=== PATIENT | male | born 1965 | race Caucasian/White ===

== ENCOUNTER 2018-08-30 10:29 | Outpatient (CLI) | payer OTHER ==
--- NOTE | 2018-08-30 13:39 | CT ---
CT RIGHT SHOULDER WITHOUT CONTRAST: DATE: 08/30/2018. PROVIDED CLINICAL HISTORY: Right shoulder dislocation. FINDINGS: There is no evidence for a fracture or other acute osseous abnormality. Glenohumeral degenerative ch anges are seen with osteophyte formation arising from the humeral head inferiorly. Subcortical cyst- like change is noted involving the inferior aspects of the glenoid. Alignment appears anatomic. Mil d acromioclavicular joint osteoarthrosis. The regional soft tissues demonstrate an unremarkable unen hanced CT appearance. Rotator cuff muscular volume appears preserved. The visualized right lung fie ld appears clear. IMPRESSION: Glenohumeral and acromioclavicular degenerative change. POS: C
== END 2018-08-30 10:30 | disposition home or self-care (01) ==
LOC: BICCT 10:29
PROVIDERS: ATTEND Orthopaedic Surgery Sports Medicine
DX: M24.411 Recurrent dislocation, right shoulder (principal); M19.011 Primary osteoarthritis, right shoulder

== ENCOUNTER 2018-09-18 00:25 | Outpatient (CLI) | payer OTHER ==
[2018-09-18 10:18] LABS: Hemoglobin 16.1 g/dL (14.0-18.0); Mean Corpuscular HGB CONC 32.6 g/dL (32.0-36.0); Mean Corpuscular Hemoglobin 28.3 pg (27.0-31.0); Mean Corpuscular Volume 86.7 fL (78.0-98.0); Mean Platelet Volume 9.2 fL (7.4-10.4); Platelet Count 217 thou/uL (130-400); RBC Distribution Width 12.7 % (11.5-14.5); Red Blood Cell (RBC) Count 5.71 mill/uL (4.70-6.10); White Blood Cell (WBC) Count 7.8 thou/uL (4.8-10.8)
[2018-09-18 10:26] LABS: INR-International Normal Ratio 1.1; PTT 29.3 SEC (22.9-36.1); Prothrombin Time 14.1 SEC (12.0-14.7)
[2018-09-18 10:47] LABS: Anion Gap 16 mmol/L (10-20); BUN (Urea Nitrogen) 13 mg/dL (8.4-25.7); Calc. Creatinine Clearance 0 mL/min (70-130); Calcium 9.7 mg/dL (7.8-10.44); Carbon Dioxide 24 mmol/L (22-29); Chloride 101 mmol/L (98-107); Estimated GFR-MDRD 81; Glucose 193 mg/dL (70-105); Potassium 4.5 mmol/L (3.5-5.1); Sodium 136 mmol/L (136-145)
== END 2018-09-18 00:26 | disposition home or self-care (01) ==
LOC: LABBT 00:25
PROVIDERS: ATTEND Orthopaedic Surgery Sports Medicine
DX: Z01.818 Encounter for other preprocedural examination (principal); M19.111 Post-traumatic osteoarthritis, right shoulder
CPT/HCPCS: 80048; 85027; 85610; 85730; 93005; 93010

== ENCOUNTER 2018-09-19 09:00 | Inpatient (IN) | payer OTHER ==
[2018-09-18 09:36] VITALS: BMI 39.3
[2018-09-21] MEDS ORDERED: Fentanyl 100 MCG/2 ML VIAL ONE ×2 (10:12→10:49)
[2018-09-21] MEDS ORDERED: EPINEPHrine 1 MG/ML AMP ONE (10:49)
[2018-09-21] MEDS ORDERED: Midazolam HCl 2 mg/2 ml Vial ONE (10:49)
[2018-09-21] MEDS ORDERED: Bupivacaine/Epinephrine 0.25% 30 ML VIAL ONE (11:37)
--- NOTE | 2018-09-21 14:24 | OP ---
DATE OF PROCEDURE: 09/21/2018 PREOPERATIVE DIAGNOSIS: Right shoulder degenerative joint disease. POSTOPERATIVE DIAGNOSIS: Right shoulder degenerative joint disease. PROCEDURE PERFORMED: Right shoulder edouard-arthroplasty using an Arthrosurface 52 x 48 mm humeral head. ANESTHESIA: General with interscalene block. VEGETABLE PACKER: Rolando Bhatti PA-C. BLOOD LOSS: 100 mL. DRAINS: None. COMPLICATIONS: None. DESCRIPTION OF PROCEDURE: Following induction of general anesthesia, the patient was placed in the beach-chair position on the operating room table. His right shoulder was prepped and draped in a sterile fashion for surgery. A 10-cm incision was made in the deltopectoral interval. Subcutaneous tissue was divided by careful blunt dissection. The deltopectoral interval was opened bluntly. Hemostasis was maintained. A [place] retractor was used for providing soft tissue retraction. The conjoint tendon was divided along its lateral border and retracted medially to expose the subscapularis. Subscapularis was noted to attach into the humerus. It was divided sharply using a needle-tip Bovie. Three #5 Ethibond sutures were placed in the retracted end of the subscap for lateral repair. A 1 to 1.5 cm cuff of tissue was left attached to the humerus for lateral repair. After releasing the subscap and the joint capsule, the shoulder was dislocated. There was noted to be grade 4 degenerative changes of the central and superior aspect of the humeral head. The glenoid surface was noted to have no degeneration or deterioration. The humeral head was exposed and sized to be a 52 x 48 mm humeral head. A guidepin was placed in through the drill guide. It was overreamed using a reamer, so that an appropriate central fixation screw could be inserted. Central fixation screw was inserted with excellent fit and fixation. The surrounding osteophytes were removed and the humeral head was prepared for inserting the permanent component. The wounds were copiously irrigated. Glenoid surface was again carefully inspected, ensuring that no degenerative changes were encountered. A permanent humeral head Arthrosurface implant was placed by press-fit technique with excellent fit and fixation. The wounds were then copiously irrigated. The shoulder had an excellent range of motion, fit, and stability. The subscapularis muscle was then repaired using the three #5 Ethibond sutures placed in horizontal mattress type fashion through the cuff of tissue remaining on the humerus. Excellent fixation and stabilization were obtained. The subcutaneous tissue was closed using 2-0 Vicryl, and akilah were placed in the skin. A large compressive sterile dressing was applied. The patient tolerated the procedure well, was taken to the recovery room in stable condition. Job ID: [id number]
[2018-09-21] MEDS ORDERED: Morphine 2 MG/ML SYRINGE SLOW IVP PRN (15:21)
[2018-09-21] MEDS ORDERED: Morphine 4 MG/ML VIAL SLOW IVP PRN (15:22)
[2018-09-21] MEDS ORDERED: HYDROcodone/Acetaminophen 7.5/325 mg Tablet PO PRN ×2 (15:23)
[2018-09-21] MEDS ORDERED: Acetaminophen 500 MG TAB PO PRN (15:24)
[2018-09-21] MEDS: Dextrose 5 %-0.45 % NaCl 1,000 ML IV SCH ×2 (15:28→15:44)
[2018-09-21] MEDS ORDERED: Acetaminophen 325 MG TAB PO PRN (15:39)
[2018-09-21] MEDS ORDERED: diphenhydrAMINE 50 MG CAP PO PRN (15:39)
[2018-09-21] MEDS ORDERED: Ondansetron ODT 4 MG TAB PO PRN (15:39)
[2018-09-21] MEDS ORDERED: HYDROcodone/Acetaminophen 10/325 mg Tablet PO PRN ×2 (15:39)
[2018-09-21] MEDS ORDERED: traMADol HCl 50 MG TAB PO PRN ×2 (15:39)
[2018-09-21] MEDS: Ketorolac Tromethamine 30 MG/ML VIAL IVP SCH ×2 (16:45→17:47)
[2018-09-21] MEDS: CEFAZOLIN 2 GM in Premix Bag 1 BAG IVPB SCH ×2 (17:48→17:57)
[2018-09-22] MEDS: Ketorolac Tromethamine 30 MG/ML VIAL IVP SCH ×6 (00:25→11:20)
[2018-09-22] MEDS: CEFAZOLIN 2 GM in Premix Bag 1 BAG IVPB SCH ×3 (03:01→11:01)
[2018-09-22] MEDS: Dextrose 5 %-0.45 % NaCl 1,000 ML IV SCH ×2 (06:00→07:38)
[2018-09-22 11:41] VITALS: BP 135/84; TEMP 98.2
== END 2018-09-22 13:45 | disposition home or self-care (01) | DRG 483 ==
LOC: SURG A 09-21 09:58
PROVIDERS: ADMIT Orthopaedic Surgery Sports Medicine; ATTEND Orthopaedic Surgery Sports Medicine
PROC: 0RRJ0J6 Replacement of Right Shoulder Joint with Synthetic Substitute, Humeral Surface, Open Approach (ICD-10-PCS; principal; 2018-09-21)
DX: M19.011 Primary osteoarthritis, right shoulder (principal); I10 Essential (primary) hypertension; G47.00 Insomnia, unspecified; F17.220 Nicotine dependence, chewing tobacco, uncomplicated; Z98.890 Other specified postprocedural states
CPT/HCPCS: J0171; J0690; J1885; J2250; J3010

== ENCOUNTER 2023-04-04 10:41 | Emergency (ER) | payer OTHER ==
[2023-04-04 11:39] LABS: #Basophils 0.1 thou/uL (0.0-0.2); #Eosinphils 0.2 thou/uL (0.0-0.7); #Neutrophils 13.8 thou/uL (1.40-6.50); %Basophils 0.3 % (0.0-1.0); %Lymphocytes 9.3 % (21.0-51.0); %Monocytes 6.2 % (0.0-10.0); %Neutrophils 82.5 % (42.0-75.0); Hematocrit 45.5 % (42.0-52.0); Hemoglobin 15.3 g/dL (14.0-18.0); Mean Corpuscular HGB CONC 33.6 g/dL (32.0-36.0); Mean Corpuscular Hemoglobin 27.4 pg (27.0-31.0); Mean Corpuscular Volume 81.5 fl (78.0-98.0); Mean Platelet Volume 11.2 fL (7.4-10.4); Platelet Count 220 10x3/uL (130-400); RBC Distribution Width 13.2 % (11.5-14.5); Red Blood Cell (RBC) Count 5.58 mill/uL (4.70-6.10); White Blood Cell (WBC) Count 16.8 10x3/uL (4.8-10.8)
[2023-04-04 11:56] LABS: Bilirubin Negative (Negative); Blood, Urine 2+ (Negative); CAUTI Indications for Culture Pelvic or flank pain; Clarity Clear (Clear); Glucose, Urine (Dipstick) Greater than 1000 mg/dL (Negative); Ketone, Urine Trace mg/dL (Negative); Leukocyte 25 Leu/uL (Negative); Nitrite Negative (Negative); Protein, Urine (Dipstick) 10 mg/dL (Neg-Trace); Specific Gravity, Urine 1.022 (1.002-1.036); Squamous Epithelial None Seen HPF (0-3); Urobilinogen Normal mg/dL (Less than 2); WBC/HPF 21-50 HPF (0-3)
[2023-04-04 11:57] LABS: Bacteria/HPF 1+ HPF (None Seen)
[2023-04-04 11:58] LABS: Urine Culture Reflex Yes Yes
[2023-04-04] MEDS ORDERED: Acetaminophen 500 MG TAB ONE (12:35)
[2023-04-04] MEDS ORDERED: Morphine 4 MG/ML VIAL ONE (12:36)
[2023-04-04] MEDS ORDERED: cefTRIAXone (ROCEPHIN) 1 GM VIAL ONE (12:46)
[2023-04-04] MEDS ORDERED: Sodium Chloride 0.9% 100 ML ONE (12:46)
[2023-04-04 12:54] LABS: ALT (SGPT) 13 U/L (8-55); AST (SGOT) 12 U/L (5-34); Albumin 4.1 g/dL (3.5-5.0); Alkaline Phosphatase 61 U/L (40-110); Anion Gap 13 mmol/L (10-20); BUN (Urea Nitrogen) 16 mg/dL (8.4-25.7); Bilirubin, Total 1.1 mg/dL (0.2-1.2); Calc. Creatinine Clearance 0 mL/min (70-130); Calcium 9.3 mg/dL (7.8-10.44); Carbon Dioxide 25 mmol/L (22-29); Chloride 101 mmol/L (98-107); Estimated GFR 69; Globulin 3.6 g/dL (2.4-3.5); Glucose 200 mg/dL (70-105); Potassium 4.1 mmol/L (3.5-5.1); Protein, Total 7.7 g/dL (6.0-8.3); Sodium 135 mmol/L (136-145)
== END 2023-04-04 14:19 | disposition home or self-care (01) ==
LOC: ERS 10:41
DX: N39.0 Urinary tract infection, site not specified (principal); K82.8 Other specified diseases of gallbladder; I10 Essential (primary) hypertension; Z79.899 Other long term (current) drug therapy
CPT/HCPCS: 74176; 76705; 80053; 81001; 83605; 85025; 87040; 87077; 87086; 87149; 87186; 93005; 96361; 96365; 96375; J0696; J2270; J3490